=== PATIENT | female | born 1980 | race Caucasian/White ===

== ENCOUNTER 2017-06-06 01:09 | Emergency (ER) | payer BC, OTHER ==
[~2017-06-06] VITALS: Ht 167.6 cm; Wt 69.5 kg
[~2017-06-06 01:09] MED LIST: CIPR500S2 PO; DOCU-144 PO; MAGN296S40 PO; NAPR-688 PO; ONDA4TAB14 PO; POLY17PO6 PO
[2017-06-06 01:13] VITALS: Ht 167.6 cm; Wt 69.5 kg
--- NOTE | 2017-06-06 02:52 | ERD ---
ER Documentation Chief Complaint Date/Time DATE: 06/06/17 TIME: 02:52 Chief Complaint painful urination, back pain HPI 36-year-old female presents here to emergency department for complaints of dysuria for 3 weeks now, patient has been seen by primary care doctor, was diagnosed to have urinary tract infection, was treated with Keflex, continues to have the symptoms afterwards. Patient denies any vaginal itching or vaginal discharge. Patient denies any fever or chills. Patient does complain of lower back pain. Patient denies any abdominal pain. ROS All systems reviewed and are negative except as per history of present illness. Medications Home Meds Active Scripts Ciprofloxacin (Ciprofloxacin) 500 Mg/5 Ml Althea.mc.rec, 500 MG PO BID, #14 TAB Prov:JOSESTACIE 07/07/16 Ondansetron (Ondansetron Odt) 4 Mg Tab.rapdis, 4 MG PO Q6H Y for NAUSEA AND/OR VOMITING, #10 TAB Prov:JOSESTACIE DO 07/07/16 Naproxen* (Naproxen*) 500 Mg Tablet, 500 MG PO BID Y for PAIN, #20 TAB Prov:JOSESTACIE 07/07/16 Docusate Sodium* (Colace*) 100 Mg Capsule, 100 MG PO BID, #60 CAP Prov:JOSESTACIE 07/07/16 Magnesium Citrate* (Magnesium Citrate*) 296 Ml Solution, 296 ML PO ONCE, #1 BOTTLE Prov:JOSESTACIE DO 07/07/16 Polyethylene Glycol* (Miralax*) 17 Gm Powd.pack, 17 GM PO DAILY, #10 PACKET Prov:STACIE GARCIA 07/07/16 Allergies Allergies: Uncoded Allergies: NSAID (Allergy, Unknown, 06/06/17) PMhx/Soc Medical and Surgical Hx: pt denies Medical Hx History of Surgery: Yes () Hx Alcohol Use: No Hx Substance Use: No Hx Tobacco Use: Yes Smoking Status: Current some day smoker FmHx Family History: No coronary disease, No diabetes, No other Physical Exam Vitals Vital Signs Date Time Temp Pulse Resp B/P Pulse Ox O2 Delivery O2 Flow Rate FiO2 06/06/17 01:13 97.8 63 20 145/85 100 Physical Exam GENERAL: The patient is well developed and appropriate for usual state of health, in no apparent distress. CHEST: Clear to auscultation bilaterally. There are no rales, wheezes or rhonchi. HEART: Regular rate and rhythm. No murmurs, clicks, rubs or gallops. No S3 or S4. ABDOMEN: Soft, nontender and nondistended. Good bowel sounds. No rebound or guarding. No gross peritonitis. No gross organomegaly or masses. No London sign or McBurney point tenderness. BACK: No midline or flank tenderness. EXTREMITIES: Equal pulses bilaterally. There is no peripheral clubbing, cyanosis or edema. No focal swelling or erythema. Full range of motion. Grossly neurovascularly intact. NEURO: Alert and oriented. Cranial nerves 2-12 intact. Motor strength in all 4 extremities with 5/5 strength. Sensation grossly intact. Normal speech and gait. SKIN: There is no apparent rash or petechia. The skin is warm and dry. HEMATOLOGIC AND LYMPHATIC: There is no evidence of excessive bruising or lymphedema. No gross cervical, axillary, or inguinal lymphadenopathy. : Erythema noted in the labia with some satellite lesions noted. No vaginal discharge noted. Results 24 hrs Laboratory Tests Test 06/06/17 02:27 Urine Color COLORLESS Urine Clarity CLEAR Urine pH 7.0 Urine Specific [place]ice 1.001 Urine Ketones NEGATIVEmg/dL Urine Nitrite NEGATIVEmg/dL Urine Bilirubin NEGATIVEmg/dL Urine Urobilinogen NEGATIVEmg/dL Urine Leukocyte Esterase NEGATIVELeu/ul Urine Hemoglobin NEGATIVEmg/dL Urine Glucose NEGATIVEmg/dL Urine Total Protein NEGATIVEmg/dl Procedures/MDM Medical decision making: Patient symptoms of dysuria most likely is consistent with Chanelle infection. No urinary tract infection noted, no hematuria noted. Prescription was given for clotrimazole 1% intravaginal cream and topical cream to help with symptoms, is advised to follow-up with primary care doctor in 2-3 days for reevaluation of symptoms. Patient was advised to return to emergency department for any worsening symptoms. Disposition: Home. Stable. Departure Diagnosis: Primary Impression: Candidiasis, vagina Condition: Stable Patient Instructions: Vaginitis, Chanelle VIJAY HUSSEIN NP Jun 06, 2017 02:52
[2017-06-06 03:09] LABS: ADD UMIC NO; UR ASCORBIC ACID NEGATIVE (NEGATIVE); UR BILIRUBIN (Dip) NEGATIVE (NEGATIVE); UR BLOOD (Dip) NEGATIVE (NEGATIVE); UR CLARITY CLEAR (CLEAR); UR COLOR COLORLESS (YELLOW); UR GLUCOSE (Dip) NEGATIVE (NEGATIVE); UR KETONES (Dip) NEGATIVE (NEGATIVE); UR LEUKOCYTE ESTERASE (Dip) NEGATIVE Leu/ul (NEGATIVE); UR NITRITE (Dip) NEGATIVE (NEGATIVE); UR SPECIFIC GRAVITY (Dip) 1.001 (1.003-1.030); UR TOTAL PROTEIN (Dip) NEGATIVE (NEGATIVE); UR UROBILINOGEN (Dip) NEGATIVE (NEGATIVE)
[2017-06-06] MEDS ORDERED: CLOT21CR6 VAGINAL (03:22)
[2017-06-06] MEDS ORDERED: CLOT30CR24 TOP (03:22)
== END 2017-06-06 03:37 | disposition home or self-care (01) ==
LOC: FTE 01:09
DX: B37.3 Candidiasis of vulva and vagina (principal); F17.210 Nicotine dependence, cigarettes, uncomplicated
CPT/HCPCS: 81003; 87086; 99283